=== PATIENT | male | born 1980 | race Caucasian/White ===

== ENCOUNTER 2019-04-02 15:05 | Outpatient (CLI) | payer BC ==
--- NOTE | 2019-04-02 16:12 | ULT ---
THYROID ULTRASOUND: 04/02/19 INDICATION: History of thyroid neoplasm. No prior imaging comparison. FINDINGS: There is no evidence of thyroid tissue evident sonographically. Patient does report history of prior thyroidectomy. Within an area of palpable concern of the right neck, adjacent lymph nodes are present , one of which measures approximately 2 cm in length and the additional measures approximately 1.7 cm in length. Fatty harleen are preserved on the basis of the provided views. IMPRESSION: 1. Status post thyroidectomy. No thyroid tissue is evident sonographically. 2. Elongated lymph nodes of the right neck accounting for area of palpable concern. As necessary , this may be further assessed with follow-up CT neck with IV contrast administration. POS: [facility]
== END 2019-04-02 15:06 | disposition home or self-care (01) ==
LOC: SCSULT 15:05
PROVIDERS: ATTEND Family Medicine
DX: M54.2 Cervicalgia (principal); R59.0 Localized enlarged lymph nodes; Z85.850 Personal history of malignant neoplasm of thyroid
CPT/HCPCS: 76536

== ENCOUNTER 2019-04-20 14:15 | Outpatient (CLI) | payer BC ==
--- NOTE | 2019-04-20 15:05 | CT ---
Exam: Noncontrast soft tissue neck CT HISTORY: Thyroid cancer. Neck tenderness. TECHNIQUE: Noncontrast soft tissue neck CT is performed in the axial plane. Reformatted images are chase bmitted for. interpretation. Despite the exam being ordered with contrast, the patient refused IV contrast FINDINGS: Visualized brain parenchyma is unremarkable Sinuses and mastoid air cells: Adequate aeration Aerodigestive tract: Patent. No mucosal abnormality. No obvious masses in the oral cavity. Midline fa tty raphae of the tongue is preserved. Salivary glands: Symmetric attenuation of the parotid and submandibular glands Muscles: There is symmetric attenuation of the paraspinal muscles as well as the sternocleidomastoid muscles Lymphadenopathy: No evidence of lymphadenopathy, based upon size criteria Thyroid: Postsurgical changes compatible with thyroidectomy Larynx: Epiglottis has a normal caliber. Preepiglottic fat is preserved. The supraglottic, glottic an d subglottic larynx are unremarkable. Cervical spine: Vertebral body height is maintained. There is no fracture. No high-grade central susu l stenosis. Varying degrees of foraminal narrowing as detailed above. Upper mediastinum and lung apices are unremarkable IMPRESSION: 1. Findings compatible with previous thyroidectomy 2. No evidence of lymphadenopathy by size criteria. 3. No obvious masses or cystic lesions on this noncontrast exam. Transcribed Date/Time: 04/20/2019 3:22 PM
== END 2019-04-20 14:16 | disposition home or self-care (01) ==
LOC: BICCT 14:15
PROVIDERS: ATTEND Family Medicine
DX: M54.2 Cervicalgia (principal); Z85.850 Personal history of malignant neoplasm of thyroid
CPT/HCPCS: 70490